=== PATIENT | female | born 1950 | race Caucasian/White ===

== ENCOUNTER 2016-11-02 12:49 | Inpatient (IN) | payer BC, MEDICAID ==
[2016-11-02] VITALS (7 sets, daily range): BP systolic 130–170; BP diastolic 78–82; PULSE 66–94; RESP 18–20; TEMP 96.8; Ht 160 cm; Wt 74.0 kg
[~2016-11-02] VITALS: Ht 160 cm; Wt 74.0 kg
[~2016-11-02 12:49] MED LIST: DICY20TA56 PO; METO5TAB11 PO; RANI150C11 PO
--- NOTE | 2016-11-02 13:57 | ERA ---
ER Documentation Chief Complaint Date/Time DATE: 11/02/16 TIME: 13:57 Chief Complaint CP WITH LEFT ARM PAIN X 4 DAYS, SENT BY PMD HPI The patient is a 66-year-old female, presenting to the ER because of left-sided chest pain radiating down to the left arm intermittently for the last 4 days, currently 3 over 10. She denies similar symptoms previously, denies dyspnea, chest pain with diaphoresis or vomiting or exertion. He denies abdominal pain, vomiting, dysuria, diarrhea, constipation. She does not smoke does not drink Past medical history: History of left breast carcinoma, status post chemotherapy and left mastectomy and left breast reconstruction Past surgical history: Appendectomy ROS All systems reviewed and are negative except as per history of present illness. Medications Home Meds Discontinued Reported Medications Ranitidine Hcl (Ranitidine Hcl) 150 Mg Capsule, 150 MG PO DAILY 05/10/12 Dicyclomine Hcl (Dicyclomine Hcl) 20 Mg Tablet, 20 MG PO Q 6 HOURS 05/10/12 Metoclopramide Hcl* (Metoclopramide Hcl*) 5 Mg Tablet, 5 MG PO DAILY 05/10/12 Allergies Allergies: Coded Allergies: naproxen (Verified Allergy, Unknown, 11/02/16) ABD PAIN PMhx/Soc History of Surgery: Yes (L BREAST CA, APPY) Anesthesia Reaction: No Hx Neurological Disorder: No Hx Respiratory Disorders: No Hx Cardiac Disorders: No Hx Psychiatric Problems: No Hx Miscellaneous Medical Probl: No Hx Alcohol Use: No Hx Substance Use: No Hx Tobacco Use: No Physical Exam Vitals Vital Signs Date Time Temp Pulse Resp B/P Pulse Ox O2 Delivery O2 Flow Rate FiO2 11/02/16 15:18 96.8 57 18 157/68 100 Room Air 11/02/16 13:32 96.8 60 20 177/84 96 Physical Exam Const: No acute distress. Head: Atraumatic, normocephalic. Eyes: Normal conjunctiva, no nystagmus. ENT: Normal external ears, nose and mouth. Neck: Full range of motion, no meningismus. Resp: Clear to auscultation bilaterally. Cardio: Regular rate and rhythm, no murmurs. Abd: Soft, normal bowel sounds, non distended, non tender. Skin: No petechiae or rashes. Back: No midline or flank tenderness. Ext: No cyanosis, or edema. Result Diagram: 11/02/16 1435 11/02/16 1435 Results 24 hrs Laboratory Tests Test 11/02/16 14:35 Activated Partial Thromboplast Time 27.5Sec Anion Gap 17 Basophils # 0.010^3/ul Basophils % 0.4% Blood Morphology Comment Blood Urea Nitrogen 13mg/dl Calcium Level 9.8mg/dl Carbon Dioxide Level 28mmol/L Chloride Level 103mmol/L Creatinine 0.76mg/dl D-Dimer 323.00ng/ml D-Dimer Comment Eosinophils # 0.310^3/ul Eosinophils % 2.8% Glucose Level 85mg/dl Hematocrit 46.5% Hemoglobin 15.6g/dl INR International Normalized Ratio 0.91 Lymphocytes # 2.110^3/ul Lymphocytes % 23.7% Mean Corpuscular Hemoglobin 28.4pg Mean Corpuscular Hemoglobin Concent 33.4g/dl Mean Corpuscular Volume 85.0fl Mean Platelet Volume 10.7fl Monocytes # 0.610^3/ul Monocytes % 6.6% Neutrophils # 6.010^3/ul Neutrophils % 66.5% Nucleated Red Blood Cells # 0.010^3/ul Nucleated Red Blood Cells % 0.0/100WBC Platelet Count 13554^3/UL Potassium Level 4.1mmol/L Prothrombin Time 12.3Sec Prothrombin Time Ratio 1.0 Red Blood Count 5.4810^6/ul Red Cell Distribution Width 13.0% Sodium Level 144mmol/L Troponin I < 0.012ng/ml White Blood Count 9.110^3/ul Current Medications Medications (Trade) Dose Ordered Sig/Alverto Route PRN Reason Start Time Stop Time Status Last Admin Dose Admin Aspirin (Aspirin) 325 mg ONCE ONCE PO 11/02/16 17:00 11/02/16 17:01 DC 11/02/16 17:16 Nitroglycerin (Nitroglycerin 2% Oint) 1 inch ONCE ONCE TD 11/02/16 17:00 11/02/16 17:01 DC 11/02/16 17:16 IV Flush (NS 3 ml) 3 ml PER PROTOCOL IV 11/02/16 17:00 Ondansetron HCl (Zofran Inj) 4 mg Q6H PRN IV NAUSEA AND/OR VOMITING 11/02/16 17:00 Acetaminophen (Tylenol Tab) 650 mg Q6H PRN PO PAIN LEVEL 1-3 OR FEVER 11/02/16 17:00 Acetaminophen (Tylenol Supp) 650 mg Q6H PRN [place] PAIN LEVEL 1-3 OR FEVER 11/02/16 17:00 Acetaminophen/ Hydrocodone Bitart ([place] (5/325)) 1 tab Q6H PRN PO MODERATE PAIN LEVEL 4-6 11/02/16 17:00 Acetaminophen/ Hydrocodone Bitart ([place] (5/325)) 2 tab Q6H PRN PO SEVERE PAIN LEVEL 7-10 11/02/16 17:00 Morphine Sulfate (morphine) 2 mg Q4H PRN IV SEVERE PAIN LEVEL 7-10 11/02/16 17:00 Docusate Sodium (Colace) 100 mg Q12H PRN PO CONSTIPATION 11/02/16 17:00 Magnesium Hydroxide (Milk Of Mag) 30 ml DAILY PRN PO CONSTIPATION 11/02/16 17:00 Bisacodyl (Dulcolax Supp) 10 mg DAILY PRN [place] CONSTIPATION 11/02/16 17:00 Famotidine (Pepcid Iv) 20 mg Q12 IV 11/02/16 21:00 Lisinopril (Zestril) 5 mg DAILY PO 11/03/16 09:00 Hydralazine HCl (Apresoline) 10 mg Q4 PRN IV sbp>160 11/02/16 17:00 Morphine Sulfate (morphine) 2 mg ONCE ONCE IV 11/02/16 17:00 11/02/16 17:08 DC Procedures/MDM EKG: Read by emergency physician Rate/Rhythm: Normal Sinus Rhythm 60 beats per min QRS, ST, T-waves: No ST elevation, no T wave inversion Impression: Normal EKG [place] [id number] Radiology Main Line: [phone] DIAGNOSTIC IMAGING REPORT Patient: BLANCA TUBBS : 1950 Age: 66 Sex: F MR #: [id number] DOS: 11/02/16 1358 Ordering MD: SHELLEY KLEIN MD Location: E/R Room/Bed: PROCEDURE: XR Chest. CLINICAL INDICATION: Chest pain TECHNIQUE: Single AP portable chest . COMPARISON: None. FINDINGS: The cardiomediastinal silhouette is within normal limits of size ..The lungs are clear without pleural effusion or focal consolidation. No pneumothorax. The osseous structures and soft tissues are unremarkable. IMPRESSION: 1. No evidence for active cardiopulmonary disease. RPTAT:AAJJ Mary Moctezuma Physician Date Time Electronically viewed and signed by Physician Marcel on 11/02/2016 14:39 GERTRUDE/ CC: SHELLEY KLEIN MD MEDICAL MAKING DECISION: The patient is a 66-year-old female, presenting with acute chest pain, concerning for ACS. She was treated with aspirin 325 mg p.o. and 1 inch of nitroglycerin ointment with good response. The differential diagnoses considered include but are not limited to acute coronary syndrome, acute myocardial infarction, pericarditis, pulmonary embolism, aortic dissection , pneumonia, pleural effusion, pneumothorax, GERD, chest wall pain. Departure Diagnosis: Primary Impression: Chest pain Condition: Stable Comments I discussed the findings with the patient. I discussed the patient with the on- call hospitalist Dr Celis who was made aware of the lab, the treatment, the patient condition. The patient is admitted to telemetry at 4:30 PM The patient's blood pressure was elevated (>120/80) but appears stable without evidence of hypertension emergency or urgency. The patient was counseled about the risks of hypertension and urged to pursue outpatient monitoring and therapy within a week after discharge with their primary care physician. SHELLEY KLEIN MD Nov 02, 2016 13:57
--- NOTE | 2016-11-02 14:39 | RADRPT ---
PROCEDURE: XR Chest. CLINICAL INDICATION: Chest pain TECHNIQUE: Single AP portable chest . COMPARISON: None. FINDINGS: The cardiomediastinal silhouette is within normal limits of size ..The lungs are clear without pleur al effusion or focal consolidation. No pneumothorax. The osseous structures and soft tissues are unr emarkable. IMPRESSION: 1. No evidence for active cardiopulmonary disease. RPTAT:AAJJ Mary Moctezuma Physician Date Time Electronically viewed and signed by Mary Moctezuma Physician on 11/02/2016 14:39 GERTRUDE/
[2016-11-02 14:58] LABS: INR 0.91; PROTIME 12.3 Sec (12.2-14.2)
[2016-11-02 14:59] LABS: CHLORIDE 103 mmol/L (97-110); PARTIAL THROMBOPLASTIN TIME 27.5 Sec (25.0-35.0); POTASSIUM 4.1 mmol/L (3.5-5.1); SODIUM 144 mmol/L (135-144)
[2016-11-02 15:02] LABS: ANION GAP 17 (8-16); BLOOD UREA NITROGEN 13 mg/dl (7-20); CARBON DIOXIDE 28 mmol/L (21-31); CREATININE 0.76 mg/dl (0.44-1.00); GLUCOSE 85 mg/dl (70-220)
[2016-11-02 15:03] LABS: CALCIUM 9.8 mg/dl (8.4-10.2)
[2016-11-02 15:13] LABS: BASOPHILS % 0.4 % (0.0-2.0); EOSINOPHILS # 0.3 10^3/ul (0.0-0.5); EOSINOPHILS % 2.8 % (0.0-7.0); HEMATOCRIT 46.5 % (37.0-47.0); HEMOGLOBIN 15.6 g/dl (12.0-16.0); LYMPHOCYTES # 2.1 10^3/ul (0.8-2.9); LYMPHOCYTES % 23.7 % (15.0-51.0); MEAN CORPUSCULAR HEMOGLOBIN 28.4 pg (29.0-33.0); MEAN CORPUSCULAR HGB CONC 33.4 g/dl (32.0-37.0); MEAN PLATELET VOLUME 10.7 fl (7.4-10.4); MONOCYTE # 0.6 10^3/ul (0.3-0.9); MONOCYTES % 6.6 % (0.0-11.0); NEUTROPHILS % 66.5 % (39.0-77.0); PLATELET COUNT 236 10^3/UL (140-440); RED BLOOD COUNT 5.48 10^6/ul (4.20-5.40); TROPONIN-I < 0.012 ng/ml (0.00-0.12); UNCORRECTED WBC 9.1 10^3/ul (4.8-10.8); WHITE BLOOD COUNT 9.1 10^3/ul (4.8-10.8)
[2016-11-02 15:24] LABS: CONDITION 1
[2016-11-02] MEDS ORDERED: morphine 2 MG INJ IV ONE (17:00)
[2016-11-02] MEDS ORDERED: ONDANSETRON 4 MG INJ IV PRN (17:00)
[2016-11-02] MEDS ORDERED: morphine 2 MG INJ IV PRN (17:00)
[2016-11-02] MEDS ORDERED: ASPIRIN 325 MG TAB PO ONE (17:00)
[2016-11-02] MEDS ORDERED: hydrALAzine 20 MG INJ IV PRN (17:00)
[2016-11-02] MEDS ORDERED: BISACODYL 10 MG SUPP PR PRN (17:00)
[2016-11-02] MEDS ORDERED: MAGNESIUM HYDROXIDE 30ML CUP PO PRN (17:00)
[2016-11-02] MEDS ORDERED: NITROGLYCERIN 2% 1 GM OINT PKT TD ONE (17:00)
[2016-11-02] MEDS ORDERED: ACETAMINOPHEN 650 MG SUPP PR PRN (17:00)
[2016-11-02] MEDS ORDERED: DOCUSATE SODIUM 100 MG CAP PO PRN (17:00)
[2016-11-02] MEDS ORDERED: HYDROCODONE/APAP (5/325) TAB PO PRN ×2 (17:00)
[2016-11-02] MEDS ORDERED: NACL 0.9% 3 ML SYG IV SCH (17:00)
--- NOTE | 2016-11-02 17:11 | HP ---
Date/Time of Note Date/Time of Note DATE: 11/02/16 TIME: 17:03 Assessment/Plan VTE Prophylaxis VTE Prophylaxis Intervention: SCD's Lines/Catheters IV [facility] Saline Lock Assessment/Plan Chief Complaint/Hosp Course Impression and plan 1. Chest pain. Rule out ACS. Will follow serial troponins. Will get custodial aide to follow considering patient's symptoms. Follow-up an echocardiogram.. Follow-up on fasting lipid panel 2. Accelerated hypertension. Will provide with antihypertensives and adjust as needed 3. History of left breast cancer status post resection and chemotherapy 10 years ago.. No active issues at this time. Patient to follow-up with her outpatient oncologist DVT prophylaxis: SCDs Admission process time is 40 minutes Discussed plan of care with Dr. Celis Problems: HPI/ROS Admit Date/Time Admit Date/Time Hx of Present Illness This is a 66-year-old female with reported past medical history of left breast cancer status post resection and chemotherapy 10 years ago who came to [facility] due to reports of chest pain. According to the patient she had been having intermittent chest pain since October 29, 2016. She reports that this is the first time that this happened to her and that she has had associated shortness of breath with this. She reports that the chest pain comes from left side of the chest and radiates to left arm pressure-like in nature and 10 out of 10 intensity when pain does come. She subsequently went to her primary care physician and did have an EKG done there that did show some reported abnormal ST elevations Leads II, III, and aVF. She was told to go to [facility] by her primary care physician due to the aforementioned issues. She denied any nausea vomiting associated with this. She did have some shortness of breath on exertion. She denied any recent sick contacts or any recent infection. On initial examination she did have initial troponin that was negative. She was noted with some hypertension. She does report having some chest pain that comes and goes on the left side of her chest. Echocardiogram at present is pending. Chest x-ray showed no acute cardiopulmonary process. We will evaluate her for the aformentioned issues. ROS 12 point review of systems obtained and entirely negative except as mentioned in history of present illness PMH/Family/Social Past Medical History Medical/surgical history 1. Left breast cancer status post resection with chemotherapy 10 years ago Family History Significant Family History: no pertinent family hx Social History Alcohol Use: none Smoking Status: Never smoker Drug Use: none Exam/Review of Systems Vital Signs Vitals Vital Signs Date Time Temp Pulse Resp B/P Pulse Ox O2 Delivery O2 Flow Rate FiO2 11/02/16 15:18 96.8 57 18 157/68 100 Room Air Exam Exam General: Slightly anxious. Reports intermittent chest pain Eyes: [pupils equal round, Anicteric sclera] Neck: Supple nontender, no JVD Cardiac: [S1, S2 auscultated, regular rhythm and rate, chest pain at times reproducible on palpation Pulmonary: [No coarse rhonchi or breathing auscultated] GI: [Abdomen soft nontender nondistended, bowel sounds active] Extremities: [No edema bilateral lower extremities] Skin: [Clean dry and intact] Neurologic: [Alert to person place and time and situation] Labs Result Diagram: 11/02/16 1435 11/02/16 1435 Medications Medications Current Medications Ondansetron HCl (Zofran Inj) 4 mg Q6H PRN IV NAUSEA AND/OR VOMITING; Start at 17:00; Status UNV Acetaminophen (Tylenol Tab) 650 mg Q6H PRN PO PAIN LEVEL 1-3 OR FEVER; Start at 17:00; Status UNV Acetaminophen (Tylenol Supp) 650 mg Q6H PRN [place] PAIN LEVEL 1-3 OR FEVER; Start 11/02/16 at 17:00; Status UNV Acetaminophen/ Hydrocodone Bitart ([place] (5/325)) 1 tab Q6H PRN PO MODERATE PAIN LEVEL 4-6; Start 11/02/16 at 17:00; Status UNV Acetaminophen/ Hydrocodone Bitart ([place] (5/325)) 2 tab Q6H PRN PO SEVERE PAIN LEVEL 7-10; Start 11/02/16 at 17:00; Status UNV Morphine Sulfate (morphine) 2 mg Q4H PRN IV SEVERE PAIN LEVEL 7-10; Start 11/02 at 17:00; Status UNV Docusate Sodium (Colace) 100 mg Q12H PRN PO CONSTIPATION; Start 11/02/16 at 17: 00; Status UNV Magnesium Hydroxide (Milk Of Mag) 30 ml DAILY PRN PO CONSTIPATION; Start at 17:00; Status UNV Bisacodyl (Dulcolax Supp) 10 mg DAILY PRN [place] CONSTIPATION; Start 11/02/16 at 17 :00; Status UNV Famotidine (Pepcid Iv) 20 mg Q12 IV ; Start 11/02/16 at 21:00; Status UNV Lisinopril (Zestril) 5 mg DAILY PO ; Start 11/03/16 at 09:00; Status UNV Hydralazine HCl (Apresoline) 10 mg Q4 PRN IV sbp>160; Start 11/02/16 at 17:00; Status UNV Morphine Sulfate (morphine) 2 mg ONCE ONCE IV ; Start 11/02/16 at 17:00; Stop 11/02/16 at 17:01; Status UNV OTF REID Nov 02, 2016 17:11
--- NOTE | 2016-11-02 19:01 | CONS ---
Date/Time of Note Date/Time of Note DATE: 11/02/16 TIME: 18:53 Assessment/Plan Assessment/Plan Chief Complaint/Hosp Course Chest pain: Some typical features but may all be related to HTN. She does not have significant risk factors but based on her significant symptoms, an inpt workup including stress test is warranted. Hypertensive urgency: SBP 177 on admission, now improved h/o breast ca s/p mastectomy/chemo -trend trops -echo -stress nuc tomorrow (will arrange) -ASA, statin until more info obtained -continue lisinopril, uptitrate to control BP -start metoprolol 12.5mg BID Problems: Consultation Date/Type/Reason Admit Date/Time Date of Consultation: Nov 02, 2016 Type of Consultation: Cardiology Reason for Consultation Chest pain Hx of Present Illness 66 yo F with a h/o breast ca s/p mastectomy/chemo (no radiation) 10 yrs ago, who presented with chest pain and SOB. The patient notes that her symptoms started 5 days ago and have been constant but do wax and wane in severity. She also has been having SOB during the episodes. She notes that she does not feel worse with exertion but she did have exertional dyspnea (no chest pain) 2 months ago when she was in [facility]. No orthopnea, PND, edema. She denies HTN but her SBP in the ER was in the 170s and her chest pain resolved with correction of her BP. She currently denies chest pain or SOB but is anxious. per HPI Past Medical History per HPI Social History Alcohol Use: none Smoking Status: Never smoker Drug Use: none Exam/Review of Systems Vital Signs Vitals Vital Signs Date Time Temp Pulse Resp B/P Pulse Ox O2 Delivery O2 Flow Rate FiO2 11/02/16 18:34 135/78 11/02/16 18:19 98.0 94 20 99 11/02/16 17:42 Room Air Exam Constitutional: alert, oriented Psych: anxiety Head: atraumatic, normocephalic Neck: supple, No jvd Respiratory: clear to auscultation, No crackles/rales Cardiovascular: nl pulses, regular rate and rhythm, No edema, No systolic murmur Gastrointestinal: non-tender, soft Extremities: normal pulses Neurological: nl mental status, nl speech Skin: No rash or lesions Results EKG: sinus, no ST changes Result Diagram: 11/02/16 1435 11/02/16 1435 Results 24 hrs Laboratory Tests Test 11/02/16 14:35 Activated Partial Thromboplast Time 27.5 Anion Gap 17 H Basophils # 0.0 Basophils % 0.4 Blood Morphology Comment Blood Urea Nitrogen 13 Calcium Level 9.8 Carbon Dioxide Level 28 Chloride Level 103 Creatinine 0.76 D-Dimer 323.00 D-Dimer Comment Eosinophils # 0.3 Eosinophils % 2.8 Glucose Level 85 Hematocrit 46.5 Hemoglobin 15.6 INR International Normalized Ratio 0.91 Lymphocytes # 2.1 Lymphocytes % 23.7 Mean Corpuscular Hemoglobin 28.4 L Mean Corpuscular Hemoglobin Concent 33.4 Mean Corpuscular Volume 85.0 Mean Platelet Volume 10.7 H Monocytes # 0.6 Monocytes % 6.6 Neutrophils # 6.0 Neutrophils % 66.5 Nucleated Red Blood Cells # 0.0 Nucleated Red Blood Cells % 0.0 Platelet Count 236 Potassium Level 4.1 Prothrombin Time 12.3 Prothrombin Time Ratio 1.0 Red Blood Count 5.48 H Red Cell Distribution Width 13.0 Sodium Level 144 Troponin I < 0.012 White Blood Count 9.1 Medications Medications Current Medications Ondansetron HCl (Zofran Inj) 4 mg Q6H PRN IV NAUSEA AND/OR VOMITING; Start at 17:00 Acetaminophen (Tylenol Tab) 650 mg Q6H PRN PO PAIN LEVEL 1-3 OR FEVER; Start at 17:00 Acetaminophen (Tylenol Supp) 650 mg Q6H PRN [place] PAIN LEVEL 1-3 OR FEVER; Start 11/02/16 at 17:00 Acetaminophen/ Hydrocodone Bitart ([place] (5/325)) 1 tab Q6H PRN PO MODERATE PAIN LEVEL 4-6; Start 11/02/16 at 17:00 Acetaminophen/ Hydrocodone Bitart ([place] (5/325)) 2 tab Q6H PRN PO SEVERE PAIN LEVEL 7-10; Start 11/02/16 at 17:00 Morphine Sulfate (morphine) 2 mg Q4H PRN IV SEVERE PAIN LEVEL 7-10; Start 11/02 at 17:00 Docusate Sodium (Colace) 100 mg Q12H PRN PO CONSTIPATION; Start 11/02/16 at 17: 00 Magnesium Hydroxide (Milk Of Mag) 30 ml DAILY PRN PO CONSTIPATION; Start at 17:00 Bisacodyl (Dulcolax Supp) 10 mg DAILY PRN [place] CONSTIPATION; Start 11/02/16 at 17 :00 Famotidine (Pepcid Iv) 20 mg Q12 IV ; Start 11/02/16 at 21:00 Lisinopril (Zestril) 5 mg DAILY PO ; Start 11/03/16 at 09:00 Hydralazine HCl (Apresoline) 10 mg Q4 PRN IV sbp>160; Start 11/02/16 at 17:00 SCOTT GUERRERO Nov 02, 2016 19:01
[2016-11-02 19:43] LABS: CREATINE KINASE 57 IU/L (23-200)
[2016-11-02 19:53] LABS: CK-MB 0.28 ng/ml (0.0-2.4)
[2016-11-02 20:02] LABS: TROPONIN-I < 0.012 ng/ml (0.00-0.12)
[2016-11-02] MEDS: METOPROLOL 25 MG TAB PO SCH (20:48)
[2016-11-02] MEDS: FAMOTIDINE 20 MG INJ IV SCH (20:48)
[2016-11-02] MEDS ORDERED: ATORVASTATIN 20 MG TAB PO SCH (21:00)
[2016-11-02 23:37] LABS: CREATINE KINASE 50 IU/L (23-200)
[2016-11-02 23:57] LABS: CK-MB < 0.22 ng/ml (0.0-2.4); TROPONIN-I < 0.012 ng/ml (0.00-0.12)
[2016-11-03] VITALS (10 sets, daily range): BP systolic 97–118; BP diastolic 50–62; PULSE 47–57; RESP 20
[2016-11-03] MEDS: ACETAMINOPHEN 325 MG TAB PO PRN ×2 (06:14→11:54)
[2016-11-03 08:00] LABS: ALBUMIN 3.7 g/dl (3.3-4.9)
[2016-11-03 08:01] LABS: POTASSIUM 4.4 mmol/L (3.5-5.1)
[2016-11-03 08:03] LABS: ALBUMIN/GLOBULIN RATIO 1.23; BILIRUBIN,INDIRECT 0.3 mg/dl (0-1.1); BILIRUBIN,TOTAL 0.3 mg/dl (0.2-1.3); CREATININE 0.85 mg/dl (0.44-1.00); TOTAL PROTEIN 6.7 g/dl (6.1-8.1)
[2016-11-03 08:04] LABS: CALCIUM 9.2 mg/dl (8.4-10.2); MAGNESIUM 1.7 mg/dl (1.7-2.5)
[2016-11-03 08:06] LABS: CREATINE KINASE 44 IU/L (23-200)
[2016-11-03 08:10] LABS: T3 UPTAKE 38.5 % (23.5-40.5)
[2016-11-03 08:13] LABS: CK-MB < 0.22 ng/ml (0.0-2.4)
[2016-11-03 08:24] LABS: TROPONIN-I 0.013 ng/ml (0.00-0.12)
[2016-11-03 08:25] LABS: THYROID STIMULATING HORMONE 3.58 MIU/L (0.465-4.680)
[2016-11-03] MEDS: FAMOTIDINE 20 MG INJ IV SCH (08:49)
[2016-11-03] MEDS: METOPROLOL 25 MG TAB PO SCH (08:49)
[2016-11-03] MEDS ORDERED: LISINOPRIL 5 MG TAB PO SCH (09:00)
[2016-11-03] MEDS ORDERED: ASPIRIN 81 MG TAB PO SCH (09:00)
[2016-11-03] MEDS ORDERED: REGADENOSON 0.4 MG/5 ML SYG ONE (10:23)
--- NOTE | 2016-11-03 10:48 | RADRPT ---
Echocardiogram Report Patient Name: BLANCA TUBBS Gender: Female Date: 1950 Study Date: 03-Nov-2016 [employer]: Slim Brooke RDCS Location: 525 Ref. Physician: OTF REID Quality: Good Procedures: Transthoracic echocardiogram with complete 2D, M-Mode, and doppler examination. Indications: Chest Pain. 2D/M Mode Doppler Measurement Value Normal Ranges Measurement Value Normal Ranges LVIDd 2D 4.2 3.5 - 5.6 cm AV Peak Luis 1.5 m/sec LVIDs 2D 2.1 2.1 - 4.1 cm AV Peak PG 9.5 mmHg LVPWd 2D 0.9 0.6 - 1.1 cm LVOT Peak Luis 1.1 m/sec IVSd 2D 1.1 0.6 - 1.1 cm LVOT Peak PG 5.0 mmHg AoR Diam 2D 2.9 2.0 - 3.7 cm MV E Peak Luis 0.7 m/sec EDV 2D 80.2 cm3 MV A Peak Luis 0.9 m/sec ESV 2D 9.5 cm3 MV E/A 0.8 LA Dimen 2D 3.2 2.3 - 4.0 cm MV Decel Time 152 msec MV Decel [place] 5 MV E/A 0.8 TR Peak Luis 2.3 m/sec TR Peak PG 21.7 mmHg RVSP 25.0 mmHg Findings Left Ventricle: Normal left ventricular systolic function. Normal left ventricular cavity size. Normal left ventricular wall thickness. Ejection fraction is visually estimated at 65 %. Tissue Doppler/Mitral Doppler indices are within normal limits. Right Ventricle: Normal right ventricular size. Normal right ventricular systolic function. Left Atrium: The left atrium is normal in size. Right Atrium: The right atrium is normal in size. Mitral Valve: Mitral valve leaflets appear mildly thickened. Mild mitral valve regurgitation. Aortic Valve: Normal appearance of the aortic valve. No significant aortic stenosis or insufficiency. Tricuspid Valve: Estimated peak PA systolic pressure 25 mmHg. There is mild tricuspid regurgitation. Pulmonic Valve: Normal pulmonic valve appearance. Pericardium: Normal pericardium with no significant pericardial effusion. Aorta: Normal aortic root. IVC: Normal size and normal respiratory collapse consistent with normal right atrial pressure. Conclusions 1.Technically difficult study due to breast implant. 2.Normal left ventricular systolic function. Normal left ventricular cavity size. Normal left ventricular wall thickness. Ejection fraction is visually estimated at 65 %. Tissue Doppler/Mitral Doppler indices are within normal limits. 3.No significant valvular stenosis or regurgitation seen. 4.Estimated peak PA systolic pressure 25 mmHg based on RA pressure of 3 mmHg. Electronically Signed By: Vince Dahl 03-Nov-2016 10:46:52 -0800 Patient Name: BLANCA TUBBS Study Date: 03-Nov-2016 [id number]
--- NOTE | 2016-11-03 11:09 | OPR ---
Date/Time of Note Date/Time of Note DATE: 11/03/16 TIME: 11:09 Operative Report Free Text/Dictation Nuclear medicine myocardial perfusion imaging: Date: 11/03/2016 Indication: Chest pain After informed consent, the patient was given IV Lexiscan. She was monitored for a total of 8 minutes post-infusion without any sings of arrhythmias. Patient had mild SOB/nausea but no chest pain or EKG changes. Please refer to separate note for imaging results. SCOTT GUERRERO Nov 03, 2016 11:09
--- NOTE | 2016-11-03 11:13 | CONS ---
Date/Time of Note Date/Time of Note DATE: 11/03/16 TIME: 11:09 Assessment/Plan Assessment/Plan Chief Complaint/Hosp Course Chest pain: Some typical features but may all be related to HTN. She does not have significant risk factors but based on her significant symptoms, an inpt workup including stress test is warranted. Echo is normal. Awaiting MPI results. Hypertensive urgency: SBP 177 on admission, now improved h/o breast ca s/p mastectomy/chemo -f/u stress nuc. If normal, can be discharged from cardiology standpoint -ASA, statin can be d/c-ed if nuc is normal -continue lisinopril -start metoprolol 12.5mg BID (can be d/c-ed if nuc is normal) Problems: Consultation Date/Type/Reason Admit Date/Time Nov 02, 2016 at 16:40 Initial Consult Date 11/02/16 Type of Consultation: Cardiology 24 HR Interval Summary Free Text/Dictation Some chest pain overnight but none this am. S/p lexiscan MPI today with me Exam/Review of Systems Vital Signs Vitals Vital Signs Date Time Temp Pulse Resp B/P Pulse Ox O2 Delivery O2 Flow Rate FiO2 11/03/16 08:28 50 11/03/16 07:48 98.3 20 110/58 95 11/02/16 17:42 Room Air Intake and Output 11/02/16 11/02/16 11/03/16 15:00 23:00 07:00 Intake Total 500 ml Output Total 1 ml Balance 499 ml Exam Constitutional: alert, oriented Psych: no complaints Head: atraumatic, normocephalic Neck: No jvd Respiratory: clear to auscultation, No crackles/rales Cardiovascular: nl pulses, regular rate and rhythm Gastrointestinal: non-tender, soft Musculoskeletal: nl extremities to inspection Extremities: normal pulses Neurological: nl mental status, nl speech Results Result Diagram: 11/02/16 1435 11/03/16 0635 Results 24 hrs Laboratory Tests Test 11/02/16 14:35 11/02/16 19:15 11/02/16 22:54 11/03/16 06:35 Activated Partial Thromboplast Time 27.5 Anion Gap 17 H 14 Basophils # 0.0 Basophils % 0.4 Blood Morphology Comment Blood Urea Nitrogen 13 15 Calcium Level 9.8 9.2 Carbon Dioxide Level 28 28 Chloride Level 103 104 Creatinine 0.76 0.85 D-Dimer 323.00 D-Dimer Comment Eosinophils # 0.3 Eosinophils % 2.8 Glucose Level 85 80 Hematocrit 46.5 Hemoglobin 15.6 INR International Normalized Ratio 0.91 Lymphocytes # 2.1 Lymphocytes % 23.7 Mean Corpuscular Hemoglobin 28.4 L Mean Corpuscular Hemoglobin Concent 33.4 Mean Corpuscular Volume 85.0 Mean Platelet Volume 10.7 H Monocytes # 0.6 Monocytes % 6.6 Neutrophils # 6.0 Neutrophils % 66.5 Nucleated Red Blood Cells # 0.0 Nucleated Red Blood Cells % 0.0 Platelet Count 236 Potassium Level 4.1 4.4 Prothrombin Time 12.3 Prothrombin Time Ratio 1.0 Red Blood Count 5.48 H Red Cell Distribution Width 13.0 Sodium Level 144 142 Troponin I < 0.012 < 0.012 < 0.012 0.013 White Blood Count 9.1 Creatine Kinase 57 50 44 Creatine Kinase Index 0.5 0.4 0.5 Creatinine Kinase MB (Mass) 0.28 < 0.22 < 0.22 Alanine Aminotransferase (ALT/SGPT) 35 Albumin 3.7 Albumin/Globulin Ratio 1.23 Alkaline Phosphatase 80 Aspartate Amino Transf (AST/SGOT) 26 Cholesterol Level 199 Cholesterol/HDL Ratio 6.0 Direct Bilirubin 0.00 Free Thyroxine Index 3.04 Globulin 3.00 HDL Cholesterol 33 L Indirect Bilirubin 0.3 LDL Cholesterol, Calculated 140 Magnesium Level 1.7 Phosphorus Level 4.0 Thyroid Stimulating Hormone (TSH) 3.580 Thyroxine (T4) 7.9 Total Bilirubin 0.3 Total Protein 6.7 Triglycerides Level 131 Triiodothyronine (T3) Uptake 38.5 Medications Medications Current Medications Ondansetron HCl (Zofran Inj) 4 mg Q6H PRN IV NAUSEA AND/OR VOMITING Last administered on 11/03/16 06:08; Admin Dose 4 MG; Start 11/02/16 at 17:00 Acetaminophen (Tylenol Tab) 650 mg Q6H PRN PO PAIN LEVEL 1-3 OR FEVER Last administered on 11/03/16 06:14; Admin Dose 650 MG; Start 11/02/16 at 17:00 Acetaminophen (Tylenol Supp) 650 mg Q6H PRN [place] PAIN LEVEL 1-3 OR FEVER; Start 11/02/16 at 17:00 Acetaminophen/ Hydrocodone Bitart ([place] (5/325)) 1 tab Q6H PRN PO MODERATE PAIN LEVEL 4-6 Last administered on 11/02/16 20:47; Admin Dose 1 TAB; Start at 17:00 Acetaminophen/ Hydrocodone Bitart ([place] (5/325)) 2 tab Q6H PRN PO SEVERE PAIN LEVEL 7-10; Start 11/02/16 at 17:00 Morphine Sulfate (morphine) 2 mg Q4H PRN IV SEVERE PAIN LEVEL 7-10; Start 11/02 at 17:00 Docusate Sodium (Colace) 100 mg Q12H PRN PO CONSTIPATION; Start 11/02/16 at 17: 00 Magnesium Hydroxide (Milk Of Mag) 30 ml DAILY PRN PO CONSTIPATION; Start at 17:00 Bisacodyl (Dulcolax Supp) 10 mg DAILY PRN [place] CONSTIPATION; Start 11/02/16 at 17 :00 Famotidine (Pepcid Iv) 20 mg Q12 IV Last administered on 11/03/16 08:49; Admin Dose 20 MG; Start 11/02/16 at 21:00 Lisinopril (Zestril) 5 mg DAILY PO Last administered on 11/03/16 08:49; Admin Dose 5 MG; Start 11/03/16 at 09:00 Hydralazine HCl (Apresoline) 10 mg Q4 PRN IV sbp>160; Start 11/02/16 at 17:00 Aspirin (Aspirin) 81 mg DAILY PO Last administered on 11/03/16 08:49; Admin Dose 81 MG; Start 11/03/16 at 09:00 Atorvastatin Calcium (Lipitor) 20 mg HS PO Last administered on 11/02/16 20:47 ; Admin Dose 20 MG; Start 11/02/16 at 21:00 Metoprolol Tartrate (Lopressor) 12.5 mg BID PO Last administered on 11/02/16 20:48; Admin Dose 12.5 MG; Start 11/02/16 at 21:00 SCOTT GUERRERO Nov 03, 2016 11:13
--- NOTE | 2016-11-03 13:13 | RADRPT ---
PROCEDURE: Lexiscan myocardial perfusion study CLINICAL INDICATION: 66 -year-old patient complaining of chest pain. TECHNIQUE: Lexiscan 0.4 mg intravenously separate acquisition gated myocardial perfusion SPECT usi ng Tc 99m Myoview seminal 30.9 mCi intravenously at stress and Tc-99m Myoview, 10.3 mCi intravenousl y at rest was performed using the rest/stress sequence. Poststress Myoview SPECT images were obtain ed in the supine position. COMPARISON: No prior studies. FINDINGS: Perfusion images reveal no evidence of perfusion defects. Lexiscan post stress gated SPECT images demonstrate no wall motion abnormalities. IMPRESSION: 1. No evidence of perfusion defects. 2. No wall motion abnormalities. 3. The left ventricle ejection fraction at stress is greater than 70%. A call report was made to Dr. Dahl at 01:12 p.m. on November 03, 2016. RPTAT: HH .Casie Rosenbaum MD, MD Date Time Electronically viewed and signed by .Casie Rosenbaum MD, MD on 11/03/2016 13:12 .L/
[2016-11-03 14:14] LABS: CREATINE KINASE 40 IU/L (23-200)
[2016-11-03 14:26] LABS: CK-MB < 0.22 ng/ml (0.0-2.4)
[2016-11-03] MEDS ORDERED: LISI-313 PO (14:26)
[2016-11-03] MEDS ORDERED: ATOR20TA65 PO (14:26)
[2016-11-03] MEDS ORDERED: METO-448 PO (14:26)
[2016-11-03 14:29] LABS: TROPONIN-I < 0.012 ng/ml (0.00-0.12)
--- NOTE | 2016-11-03 14:30 | PDOCDIS ---
Discharge Instructions DIAGNOSIS Discharge Diagnosis: 1. chest pain 2. accelerated hypertension 3. hx left breast CA CONDITION Patient Condition: Stable HOME CARE INSTRUCTIONS: Special Diet: cardiac diet FOLLOW UP/APPOINTMENTS Appointments 1. Follow up with your primary care provider in one week OTHER ORDERS: Other Orders: 1. Call 911 if you have worsening chest pain or shortness of breath OTF REID Nov 03, 2016 14:30
[2016-11-03] MEDS ORDERED: ALPR0.25 PO (14:47)
== END 2016-11-03 17:30 | disposition home or self-care (01) | DRG 313 ==
LOC: E/R 12:49 → TEL 16:40
PROVIDERS: ADMIT Hospitalist; ATTEND Hospitalist
DX: R07.9 Chest pain, unspecified (principal); I10 Essential (primary) hypertension; Z85.3 Personal history of malignant neoplasm of breast
CPT/HCPCS: 36415; 71010; 78452; 80048; 80053; 80061; 82550; 82553; 83735; 84100; 84436; 84443; 84479; 84484; 85025; 85378; 85610; 85730; 93005; 93017; 93306; A9500; A9505; J2270; J2405; J2785